=== PATIENT | male | born 1980 | race Caucasian/White ===

== ENCOUNTER 2016-11-26 19:51 | Emergency (ER) | payer OTHER ==
[2016-11-26 21:16] LABS: BASOPHIL 0.3 % (0-2); EOSINOPHIL 2.3 % (0-5); HCT 45.4 % (42.0-52.0); HGB 16.5 g/dl (13.2-18.0); LYMPHOCYTE 21.4 % (15-48); MCH 30.6 pg (25.0-31.0); MCHC 36.3 g/dL (32.0-36.0); MCV 84.1 fL (78.0-100.0); MPV 9.5 fL (6.0-9.5); PLT 347 K/uL (150-400); RDW 13.2 % (11.5-14.0); WBC 11.6 K/uL (4.0-10.5)
[2016-11-26 21:36] LABS: ALBUMIN 4.8 g/dL (3.5-5.0); BILIRUBIN - TOTAL 0.7 mg/dL (0.1-1.0); CREATININE 1.1 mg/dL (0.7-1.2); GLOBULIN (CALCULATION) 3.1 g/dL (2.2-4.2); MAGNESIUM 2.07 mg/dL (1.40-2.10); PHOSPHORUS 3.7 mg/dL (2.7-4.5); TOTAL PROTEIN 7.9 g/dL (6.4-8.3)
[2016-11-26 22:56] LABS: BILIRUBIN NEGATIVE (NEGATIVE); BLOOD TRACE-INTACT Ery/uL (NEGATIVE); CLARITY CLEAR (CLEAR); COLOR YELLOW (YELLOW); GLUCOSE (U) NORMAL (NORMAL); KETONE (U) NEGATIVE (NEGATIVE); LEUKOCYTES NEGATIVE Leu/uL (NEGATIVE); NITRITE NEGATIVE (NEGATIVE); PROTEIN TRACE (LOW) mg/dL (NEGATIVE); SPECIFIC GRAVITY >=1.030 (1.001-1.030); UROBILINOGEN 0.2 mg/dL (0.2-1.0); pH 5.5 (5.0-9.0)
[2016-11-26 23:05] LABS: BACTERIA 1+
[2016-11-26 23:06] LABS: MUCOUS MODERATE
== END 2016-11-27 00:10 | disposition home or self-care (01) ==
LOC: FER 19:51
PROVIDERS: Emergency Medicine Emergency Medical Services
DX: E86.0 Dehydration (principal); R25.2 Cramp and spasm; R53.1 Weakness; R11.0 Nausea; L02.415 Cutaneous abscess of right lower limb; F17.210 Nicotine dependence, cigarettes, uncomplicated
CPT/HCPCS: 36415; 80053; 81001; 83735; 84100; 85025; 93005; J1885; J2405; J2800; J3360